=== PATIENT | female | born 1980 | race American Indian/Alaskan Native ===

== ENCOUNTER 2017-08-06 15:10 | Emergency (ER) | payer SELFPAY ==
[2017-08-06 15:27] VITALS: BP 119/50
[2017-08-06 16:43] LABS: Bacteria,Urine 2+ /HPF (Negative); Bilirubin,Urine NEG (Negative); Blood,Urine MOD (Negative); Color,Urine Yellow (Yellow); Mucus,Urine FEW /HPF; Protein,Urine <15 mg/dL mg/dL (Negative); Urobilinogen,Urine < 2.0 mg/dL (<2.0)
[2017-08-06 16:48] LABS: HCG Qualitative,Urine Negative (Negative)
--- NOTE | 2017-08-06 17:02 | Emergency Department Report ---
Blank Doc - Documentation Documentation: Patient is a 36-year-old female presents with vaginitis densely going on for the last day. She is sexually active she denies having any dysuria or any discharge she states that she took Diflucan before without any resolution of her symptoms.
--- NOTE | 2017-08-06 17:24 | Emergency Department Report ---
ED Female HPI - General Chief complaint: Urogenital-Female Stated complaint: VAGINAL PAIN Time Seen by Provider: 08/06/17 17:22 Source: patient Mode of arrival: Ambulatory Limitations: No Limitations - History of Present Illness Initial comments: This is a 36 y.o. female that presents with vaginal pain and discomfort for 2 days. Patient reports vagina is red and uncomfortable to touch by clothing. States recent exposure to STD. She have a history of diabetes type II and off metformin and glipizide for a while since moving here from [place]. Denies discharge, abdominal pain, back pain, frequency, urgency, and dysuria. MD Complaint: possible STD -: days(s) (2) Location: labia Radiation: non-radiating Severity: moderate Severity scale (0 -10): 6 Consistency: constant Improves with: none Are you Now?: Yes - Related Data Previous Rx's Medication Instructions Recorded Last Taken Type Fluconazole [Diflucan] 150 mg PO ONCE #1 tablet 08/06/17 Unknown Rx RX: Metformin HCl [Glucophage] 1,000 mg PO BID #60 tablet 08/06/17 Unknown Rx RX: glipiZIDE [glipiZIDE XL] 2.5 mg PO DAILY #30 tab.er.24 08/06/17 Unknown Rx metroNIDAZOLE [Metronidazole] 500 mg PO BID 10 Days #20 tablet 08/06/17 Unknown Rx Allergies Allergy/AdvReac Type Severity Reaction Status Date / Time azithromycin Allergy Rash Verified 08/06/17 15:23 [From Zithromax Z-Carroll] ED Review of Systems ROS: Stated complaint: VAGINAL PAIN Other details as noted in HPI ED Past Medical Hx - Past Medical History Previous Medical History?: Yes Hx Diabetes: Yes (off meds) - Surgical History Past Surgical History?: No - Social History Smoking Status: Never Smoker Substance Use Type: Alcohol - Medications Home Medications: Home Medications Medication Instructions Recorded Confirmed Last Taken Type Fluconazole [Diflucan] 150 mg PO ONCE #1 tablet 08/06/17 Unknown Rx RX: Metformin HCl [Glucophage] 1,000 mg PO BID #60 tablet 08/06/17 Unknown Rx RX: glipiZIDE [glipiZIDE XL] 2.5 mg PO DAILY #30 tab.er.24 08/06/17 Unknown Rx metroNIDAZOLE [Metronidazole] 500 mg PO BID 10 Days #20 tablet 04/05/18 Unknown Rx ED Physical Exam - General Limitations: No Limitations General appearance: alert, in no apparent distress - Respiratory Respiratory exam: Present: normal lung sounds bilaterally. Absent: respiratory distress - Cardiovascular Cardiovascular Exam: Present: regular rate, normal rhythm, normal heart sounds. Absent: systolic murmur, diastolic murmur, rubs, gallop - GI/Abdominal GI/Abdominal exam: Present: soft, normal bowel sounds. Absent: distended, tenderness, guarding, rebound, rigid, organomegaly, mass - External exam: Present: erythema. Absent: swelling, lesions, lacerations, ecchymosis, bleeding Speculum exam: Present: erythema, vaginal discharge (thick white discharge, no odor). Absent: cervical discharge, vaginal bleeding, foreign body, tissue, laceration Bi-manual exam: Present: normal bi-manual exam - Back Exam Back exam: Present: normal inspection. Absent: tenderness, CVA tenderness (R), CVA tenderness (L) - Neurological Exam Neurological exam: Present: alert, oriented X3, normal gait - Psychiatric Psychiatric exam: Present: normal affect, normal mood - Skin Skin exam: Present: warm, dry, intact, normal color. Absent: rash ED Course Vital Signs 08/06/17 15:23 Temperature 98.8 F Pulse Rate 90 Respiratory 18 Rate Blood Pressure 119/50 O2 Sat by Pulse 99 Oximetry ED Medical Decision Making - Medical Decision Making This is a 36 y.o. female presents with vaginal irritation and redness for 2 days. Patient was examined by me and Dr. Neville. She just moved here from [place] and have not established PCP. She have a history of DM2. She have been of metformin and glipizide for months. Obtained wet prep via pelvic exam, results positive for bacterial vaginitis. Discussed results with patient. Given metronidazole 500 mg po and metformin 1,000 mg po in ER. Discharged home in stable condition. Start metronidazole 500 mg po bid x 7 days. Refilled metformin 1,000 mg po bid and glipizide 2.5 mg po daily. Referrals to PCP and encouraged to establish care for management of diabetes. Critical care attestation.: If time is entered above; I have spent that time in minutes in the direct care of this critically ill patient, excluding procedure time. 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 Continue safe sexual intercourse. Follow up with Primary Care Provider from referrals to continue management of diabetes in 1-2 weeks. Prescriptions: Fluconazole [Diflucan] 150 mg PO ONCE #1 tablet RX: glipiZIDE [glipiZIDE XL] 2.5 mg PO DAILY #30 tab.er.24 RX: Metformin HCl [Glucophage] 1,000 mg PO BID #60 tablet metroNIDAZOLE [Metronidazole] 500 mg PO BID 10 Days #20 tablet Referrals: [facility] [Outside] - 3-5 Days [facility] [Outside] - 3-5 Days [facility] [Outside] - 3-5 Days Forms: STI Treatment and Prevention Time of Disposition: 18:19 Print Language: GREEK
[2017-08-06] MEDS ORDERED: FLAGYL PO ONE (18:08)
[2017-08-06] MEDS ORDERED: GLUCOPHAGE PO ONE (18:14)
== END 2017-08-06 18:59 | disposition home or self-care (01) ==
LOC: ED 15:10
DX: N76.0 Acute vaginitis (principal); E11.9 Type 2 diabetes mellitus without complications; Z88.1 Allergy status to other antibiotic agents
CPT/HCPCS: 81001; 81025; 82962; 87210; 87591; 99284

== ENCOUNTER 2018-11-06 18:29 | Emergency (ER) | payer OTHER ==
--- NOTE | 2018-11-06 19:38 | Event Note ---
ED Screening Note Date of service: 11/06/18 Time: 19:34 ED Screening Note: This is a 37 y.o. F. that presents to ER with vaginal bleeding and abdominal cramps. LMP 10/24/18, A2 abortions Positive test yesterday PMH DM2 This initial assessment/diagnostic orders/clinical plan/treatment(s) is/are subject to change based on patients health status, clinical progression and re- assessment by fellow clinical providers in the ED. Further treatment and workup at subsequent clinical providers discretion. Patient/guardian urged not to elope from the ED as their condition may be serious if not clinically assessed and managed. Initial orders include: Labs and OB US
[2018-11-06 20:10] LABS: Basophils # (Auto) 0.1 K/mm3 (0.0-0.1); Basophils % (Auto) 0.8 % (0.0-1.8); Eosinophils # (Auto) 0.1 K/mm3 (0.0-0.4); Eosinophils % (Auto) 0.9 % (0.0-4.3); Hematocrit 37.3 % (30.3-42.9); Hemoglobin 12.8 gm/dl (10.1-14.3); Lymphocytes # (Auto) 2.7 K/mm3 (1.2-5.4); Mean Corpuscular HGB Conc 34 % (30-34); Mean Corpuscular Volume 91 fl (79-97); Monocytes # (Auto) 0.4 K/mm3 (0.0-0.8); Monocytes % (Auto) 5.3 % (0.0-7.3); Platelet Count 201 K/mm3 (140-440); Red Blood Count 4.11 M/mm3 (3.65-5.03); Red Cell Distribution Width 14.2 % (13.2-15.2)
[2018-11-06 20:20] LABS: Bilirubin,Urine NEG (Negative); Blood,Urine MOD (Negative); Color,Urine Yellow (Yellow); Mucus,Urine FEW /HPF; Protein,Urine <15 mg/dL mg/dL (Negative); Urobilinogen,Urine < 2.0 mg/dL (<2.0)
--- NOTE | 2018-11-06 22:24 | Ultrasound Report ---
Transabdominal and transvaginal OB pelvic ultrasound INDICATION / CLINICAL INFORMATION: Vaginal bleeding and cramping. Positive home test. COMPARISON: None available. FINDINGS: Transabdominal: The uterus measures 9.7 x 4.8 x 5.2 cm. The endometrial stripe measures 1.3 cm AP. I do not identify a gestational sac. Neither ovary is seen. Images of the urinary bladder are normal. Transvaginal: There is a small rounded ovoid fluid collection in the inferior endometrial cavity patricia uring approximately 5 1/2 weeks. There is mild internal complexity without a discrete pole or y olk sac present. I do not identify a heart activity. The right ovary measures 2.4 x 1.6 x 1.7 c m and demonstrates normal blood flow on Doppler exam. The left ovary is not seen. There is no evidenc e of free fluid. There is no evidence of an extraovarian mass. IMPRESSION: Small rounded intrauterine fluid collection measuring 5 1/2 weeks. A missed is s uspected. A follow-up pelvic ultrasound in 7-10 days is recommended to better assess viability. Signer Name: Ryley Fischer MD Signed: 11/06/2018 10:19 PM Workstation Name: [id number]
--- NOTE | 2018-11-06 23:07 | Emergency Department Report ---
ED Female HPI - General Chief complaint: Abdominal Pain Stated complaint: MISCARRIAGE/VAGINAL BLEEDING/CRAMPS Time Seen by Provider: 11/06/18 19:34 Source: patient Mode of arrival: Ambulatory Limitations: No Limitations - History of Present Illness Initial comments: Patient is a A2 37-year-old female with no past medical history was approximately 6 weeks gestation and presents to the ED with a combination of acute onset persistent pelvic pain and vaginal bleeding for the last 2 days. Patient states that the pain is persistent and sharp and that the bleeding has been intermittent but steady with blood clots. Patient denies dizziness, fever, chills, nausea, vomiting, diarrhea, dysuria, urinary frequency and urgency, back pain, headache, chest pain, shortness of breath or lightheadedness. MD Complaint: vaginal bleeding, pelvic pain -: Sudden, days(s) (2) Location: suprapubic, other (VAGINAL) Radiation: non-radiating Severity scale (0 -10): 4 Quality: cramping, sharp Consistency: constant Improves with: none Worsens with: none Are you Now?: Yes (Approximately 6 weeks gestation) Last Menstrual Period: 09/24/18 EDC: 07/01/19 Associated Symptoms: denies other symptoms, vaginal bleeding, abdominal pain. denies: vaginal discharge, nausea/vomiting, fever/chills, headaches, loss of ap petite, dysuria, hematuria, rash, seizure, shortness of breath, syncope, weakness - Related Data Sexually active: Yes : 6 Para: 3 A: 2 Previous Rx's Medication Instructions Recorded Last Taken Type Fluconazole [Diflucan] 150 mg PO ONCE #1 tablet 08/06/17 Unknown Rx Metformin HCl [Glucophage] 1,000 mg PO BID #60 tablet 08/06/17 Unknown Rx glipiZIDE [glipiZIDE XL] 2.5 mg PO DAILY #30 tab.er.24 08/06/17 Unknown Rx metroNIDAZOLE [Metronidazole] 500 mg PO BID 10 Days #20 tablet 08/06/17 Unknown Rx HYDROcodone/APAP 5-325 [[place] 1 each PO Q6HR PRN #10 tablet 05/25/18 Unknown Rx 5/325] Ibuprofen [Ibuprofen 800] 800 mg PO Q6H PRN #15 tablet 05/25/18 Unknown Rx Penicillin V Potassium 500 mg PO Q6H 10 Days #40 tablet 05/25/18 Unknown Rx Allergies Allergy/AdvReac Type Severity Reaction Status Date / Time azithromycin Allergy Rash Verified 05/25/18 10:10 [From Zithromax Z-Carroll] ED Review of Systems ROS: Stated complaint: MISCARRIAGE/VAGINAL BLEEDING/CRAMPS Other details as noted in HPI Constitutional: denies: chills, fever Eyes: denies: eye pain, eye discharge, vision change ENT: denies: ear pain, throat pain Respiratory: denies: cough, shortness of breath, wheezing Cardiovascular: denies: chest pain, palpitations Endocrine: no symptoms reported Gastrointestinal: abdominal pain. denies: nausea, diarrhea Genitourinary: other (vaginal bleeding). denies: urgency, dysuria, discharge Musculoskeletal: denies: back pain, joint swelling, arthralgia Skin: denies: rash, lesions Neurological: denies: headache, weakness, paresthesias Psychiatric: denies: anxiety, depression Hematological/Lymphatic: denies: easy bleeding, easy bruising ED Past Medical Hx - Past Medical History Hx Diabetes: Yes - Surgical History Past Surgical History?: Yes Additional Surgical History: cholecycetomy 2007 - Social History Smoking Status: Never Smoker - Medications Home Medications: Home Medications Medication Instructions Recorded Confirmed Last Taken Type Fluconazole [Diflucan] 150 mg PO ONCE #1 tablet 08/06/17 Unknown Rx Metformin HCl [Glucophage] 1,000 mg PO BID #60 tablet 08/06/17 Unknown Rx glipiZIDE [glipiZIDE XL] 2.5 mg PO DAILY #30 tab.er.24 08/06/17 Unknown Rx metroNIDAZOLE [Metronidazole] 500 mg PO BID 10 Days #20 tablet 08/06/17 Unknown Rx HYDROcodone/APAP 5-325 [[place] 1 each PO Q6HR PRN #10 tablet 05/25/18 Unknown Rx 5/325] Ibuprofen [Ibuprofen 800] 800 mg PO Q6H PRN #15 tablet 05/25/18 Unknown Rx Penicillin V Potassium 500 mg PO Q6H 10 Days #40 tablet 05/25/18 Unknown Rx ED Physical Exam - General Limitations: No Limitations General appearance: alert, in no apparent distress - Head Head exam: Present: atraumatic, normocephalic, normal inspection - Eye Eye exam: Present: normal appearance, PERRL, EOMI. Absent: scleral icterus, conjunctival injection - ENT ENT exam: Present: normal exam, normal orophraynx, mucous membranes moist, TM's normal bilaterally, normal external ear exam - Neck Neck exam: Present: normal inspection, full ROM - Respiratory Respiratory exam: Present: normal lung sounds bilaterally. Absent: respiratory distress, wheezes, rales, rhonchi, chest wall tenderness, accessory muscle use, prolonged expiratory - Cardiovascular Cardiovascular Exam: Present: regular rate, normal rhythm, normal heart sounds. Absent: systolic murmur, diastolic murmur, rubs, gallop - GI/Abdominal GI/Abdominal exam: Present: soft, tenderness (suprapubic area, moderately), normal bowel sounds. Absent: distended, hyperactive bowel sounds, hypoactive bowel sounds - Rectal Rectal exam: Present: deferred - External exam: Present: normal external exam Speculum exam: Present: vaginal bleeding - Extremities Exam Extremities exam: Present: normal inspection, full ROM, normal capillary refill - Back Exam Back exam: Present: normal inspection, full ROM. Absent: tenderness, CVA tenderness (L), muscle spasm, paraspinal tenderness - Neurological Exam Neurological exam: Present: alert, oriented X3, CN II-XII intact, normal gait, reflexes normal - Psychiatric Psychiatric exam: Present: normal affect, normal mood - Skin Skin exam: Present: warm, dry, intact, normal color. Absent: rash ED Course Vital Signs 11/06/18 19:36 Temperature 98.1 F Pulse Rate 90 Respiratory 18 Rate Blood Pressure 118/76 O2 Sat by Pulse 99 Oximetry - Reevaluation(s) Reevaluation #1: 11/06/18 23:17 Patient is alert and oriented 3 and is not in distress with normal vital signs. Lab test results were reviewed and are unremarkable except for hCG Quant of 722.5 and hyperglycemia 260 mg/dL. Urinalysis is unremarkable except for moderate blood in the urine. Transvaginal ultrasound and pelvic ultrasound show a small rounded ovoid fluid collection in the inferior endometrial cavity measuring approximately 5-1/2 weeks. There is mild internal complexity without a discrete pole or yolk sac present. There is no heart activity identified. The right ovary demonstrates normal blood flow on Doppler exam. The left ovary is not seen. There is no evidence of free fluid. There is no evidence of an extra ovarian mass. A missed is suspected. A follow-up pelvic ultrasound in 7-10 days was recommended by the radiologist to better assess viability. On reevaluation, patient's pain is well controlled and patient was discharged home and advised to return to the ED in 2 days for repeat hCG Quant test or to follow-up with her [employer] physician within 48 hours for the same. Patient was advised to maintain a complete pelvic rest and take Tylenol as needed for pain. Patient was however advised to return to the ED immediately if symptoms get worse. ED Medical Decision Making - Lab Data Result diagrams: 11/06/18 19:54 - Radiology Data Radiology results: report reviewed, image reviewed Transvaginal ultrasound and pelvic ultrasound show a small rounded ovoid fluid collection in the inferior endometrial cavity measuring approximately 5-1/2 w eeks. There is mild internal complexity without a discrete pole or yolk sac present. There is no heart activity identified. The right ovary demonstrates normal blood flow on Doppler exam. The left ovary is not seen. There is no evidence of free fluid. There is no evidence of an extra ovarian mass. A missed is suspected. A follow-up pelvic ultrasound in 7-10 days was recommended by the radiologist to better assess viability - Medical Decision Making Patient is alert and oriented 3 and is not in distress with normal vital signs. Lab test results were reviewed and are unremarkable except for hCG Quant of 722.5 and hyperglycemia 260 mg/dL. Urinalysis is unremarkable except for moderate blood in the urine. Transvaginal ultrasound and pelvic ultrasound show a small rounded ovoid fluid collection in the inferior endometrial cavity measuring approximately 5-1/2 weeks. There is mild internal complexity without a discrete pole or yolk sac present. There is no heart activity identified. The right ovary demonstrates normal blood flow on Doppler exam. The left ovary is not seen. There is no evidence of free fluid. There is no evidence of an extra ovarian mass. A missed is suspected. A follow-up pelvic ultrasound in 7-10 days was recommended by the radiologist to better assess viability. On reevaluation, patient's pain is well controlled and patient was discharged home and advised to return to the ED in 2 days for repeat hCG Quant test or to follow-up with her [employer] physician within 48 hours for the same. Patient was advised to maintain a complete pelvic rest and take Tylenol as needed for pain. Patient was however advised to return to the ED immediately if symptoms get worse. - Differential Diagnosis Pelvic pain; Threatened miscarriage; Inevitable , ectopic Critical care attestation.: If time is entered above; I have spent that time in minutes in the direct care of this critically ill patient, excluding procedure time. ED Disposition Clinical Impression: Threatened miscarriage in early , Inevitable , Pelvic pain during in first trimester, antepartum, Vaginal bleeding affecting early Disposition: DC- TO HOME OR SELFCARE Is pt being admited?: No Does the pt Need Aspirin: No Condition: Stable Instructions: Abdominal Pain (ED) Additional Instructions: Maintain a complete pelvic rest and take Tylenol as needed for pain. Drink plenty of fluids and return to the ED in 48 hours for repeat hCG Quant studies to confirm the viability of the . Otherwise follow-up in the [employer] physician in 7-10 days for reevaluation. Referrals: [facility] [Outside] - 3-5 Days Time of Disposition: 23:09 Print Language: TANZANIAN
[2018-11-06 23:31] VITALS: BP 121/80
== END 2018-11-06 23:31 | disposition home or self-care (01) ==
LOC: ED 18:29
DX: O20.0 Threatened abortion (principal); O24.111 Pre-existing type 2 diabetes mellitus, in pregnancy, first trimester; E11.9 Type 2 diabetes mellitus without complications; Z90.49 Acquired absence of other specified parts of digestive tract; Z3A.01 Less than 8 weeks gestation of pregnancy; Z79.899 Other long term (current) drug therapy; Z88.1 Allergy status to other antibiotic agents
CPT/HCPCS: 36415; 76801; 76817; 81001; 82962; 84702; 84703; 85025; 86900; 86901; 99284